=== PATIENT | female | born 1930 | race Caucasian/White ===

== ENCOUNTER 2017-01-02 18:37 | Inpatient (IN) ==
--- NOTE | 2017-01-02 18:52 | Emergency Department Note ---
Disposition Clinical Impression: Generalized weakness, UTI (urinary tract infection) Disposition: Admitted As Inpatient Condition: Good Referrals: Dillon Manning MD [Primary Care Provider] - Forms: ED Satisfaction Letter Time of Disposition: 22:14 Abdominal Pain HPI - General Chief Complaint: ED Weakness Stated Complaint: weakness, loss of appetite Time Seen by Provider: 01/02/17 18:45 Source: patient Mode of arrival: wheelchair Limitations: physical limitation Nursing Notes Reviewed: Yes Vital Signs Reviewed: Yes - History of Present Illness HPI Narrative: 86-year-old white female complaining of right lower abdominal pain that started earlier this morning. It is sharp in nature. Nonradiating. It is worse with movement. The last 2 months she has had problems with weakness, weight loss, poor by mouth intake. She has been evaluated by her primary care physician, has had no extensive outpatient workup including upper GI, EGD, colonoscopy, CT abdomen and pelvis. No nausea or vomiting. She has currently been treated for urinary tract infection for the last 2 weeks. Pt Subjective Complaint: abdominal pain Onset (ago): day(s) Consistency: constant (1) Location: RLQ Pain Severity: moderate Quality: sharp Radiation: none Migration to: no migration Improves with: nothing Worsens with: movement Context: other (Recent weight loss of 30 pounds with poor by mouth intake) Associated symptoms: Reports: other (Weight loss, poor by mouth intake.) - Related Data Home Medications Medication Instructions Recorded Confirmed Aspirin [Ecotrin] 325 mg PO DAILY 12/22/16 01/02/17 Calcium Carbonate [Calcium] 600 mg PO DAILY 12/22/16 01/02/17 Cholecalciferol (D-3) [Vitamin D] 1,000 unit PO DAILY 12/22/16 01/02/17 Doxazosin [Cardura] 4 mg PO DAILY 12/22/16 01/02/17 Famotidine [Pepcid] 40 mg PO DAILY 12/22/16 01/02/17 Ferrous Gluconate 324 mg PO BID 12/22/16 01/02/17 Furosemide [Lasix] 40 mg PO DAILY 12/22/16 01/02/17 Levothyroxine [Synthroid] 88 mcg PO DAILY 12/22/16 01/02/17 Metoprolol Succinate 50 mg PO DAILY 12/22/16 01/02/17 Oxybutynin Chloride [Ditropan Xl] 10 mg PO DAILY 12/22/16 01/02/17 Pantoprazole Sodium [Protonix] 40 mg PO DAILY 12/22/16 01/02/17 Paroxetine HCl [Paxil] 10 mg PO DAILY 12/22/16 01/02/17 Potassium Chloride [Klor-Con 10] 10 meq PO QID 12/22/16 01/02/17 Probenecid [Benemid] 500 mg PO BID 12/22/16 01/02/17 Previous Rx's Medication Instructions Recorded Nitrofurantoin (BID) [Macrobid] 100 mg PO BID #20 capsule 12/22/16 Allergies Allergy/AdvReac Type Severity Reaction Status Date / Time lisinopril Allergy Rash Verified 01/02/17 18:39 Penicillins Allergy Hives Verified 01/02/17 18:39 All systems ED: reviewed and negative except as stated. Constitutional: Denies: fever, chills ENT ED: Denies: ear pain, throat pain Cardiovascular: Denies: chest pain Respiratory: Denies: cough, dyspnea Gastrointestinal: Reports: abdominal pain. Denies: nausea, vomiting, diarrhea Genitourinary: Denies: urgency, dysuria, frequency Musculoskeletal: Denies: back pain Neurological: Reports: weakness. Denies: numbness, paresthesias Abdominal Pain PMH - Past Medical History Medical history: Reports: cancer, GERD, hyperlipidemia, hypertension, thyroid disease, other Female Surgical History: Reports: cholecystectomy Psychiatric history: Reports: no psych history - Social History Smoking status: Never smoker Alcohol use: Reports: none Drug use: Reports: none Physical Exam - General Limitations: no limitations, physical limitation (Hearing deficit) General appearance: alert, in no apparent distress - Head Head exam: atraumatic, normocephalic - Eye Eye exam: Present: PERRL, EOMI. Absent: scleral icterus, conjunctival injection - ENT ENT exam: normal oropharynx, mucous membranes moist, TM's normal bilaterally - Neck Neck exam: Present: normal inspection, full ROM, trachea midline. Absent: lymphadenopathy - Chest Chest inspection: Present: normal inspection, symmetric chest wall rise - Respiratory Respiratory exam: Present: normal lung sounds bilaterally. Absent: respiratory distress, wheezes - Cardiovascular Cardiovascular exam: Present: regular rate, normal rhythm, normal heart sounds - Abdominal Exam Abdominal exam: Present: soft, tenderness, normal bowel sounds. Absent: distention, guarding, rebound, organomegaly, mass Abdominal tenderness: Present: RLQ, moderate - Back Exam Back exam: Absent: CVA tenderness (R), CVA tenderness (L) - Neurological Exam Neurological exam: Present: alert, oriented X3 - Psychiatric Psychiatric exam: Present: normal affect, normal mood - Skin Skin exam: Present: warm, dry. Absent: rash, cyanosis, diaphoresis Course Vital Signs Temperature 99.5 F 01/02/17 19:07 Pulse Rate 107 01/02/17 19:07 Respiratory Rate 18 01/02/17 19:07 Blood Pressure 136/64 01/02/17 19:07 O2 Sat by Pulse Oximetry 94 01/02/17 19:07 Temperature 99.5 F 01/02/17 19:07 Pulse Rate 71 01/02/17 21:42 Respiratory Rate 17 01/02/17 21:42 Blood Pressure 135/67 01/02/17 21:42 O2 Sat by Pulse Oximetry 96 01/02/17 21:42 Oxygen Delivery Oxygen Delivery Room Air Abdominal Pain - MDM Narrative Medical decision making narrative: Differential includes but is not limited to appendicitis, ureterolithiasis, pyelonephritis, cystitis, inguinal hernia, femoral hernia. Her abdominal pain resolved while she was here. On repeat exam she had no abdominal tenderness. The family states she lives alone. She is so weak she cannot even stand on her own. They are asking for admission for placement. She cannot care for herself. I spoke with Dr. Tomlin. He is agreeable with admission for placement. I am going to start Rocephin pending her urine culture results. - Medical Records Medical records reviewed: Yes I reviewed the patient's medical records. - Lab Data Lab results reviewed: Yes I reviewed the patient's lab results. Result diagrams: 01/02/17 19:20 01/02/17 19:20 Lab Results 01/02/17 01/02/17 01/02/17 Range/Units 19:20 19:20 20:40 WBC 14.7 H (4.3-11.1) K/mcL RBC 4.14 (3.82-4.97) M/mcL Hgb 12.3 (11.5-15.4) g/dL Hct 36.7 (35.3-44.9) % MCV 88.6 (83.0-100.0) fL MCH 29.7 (28.0-33.3) pg MCHC 33.5 (31.6-35.5) g/dL RDW 13.8 (11.5-14.5) % Plt Count 242 (140-400) K/mcL MPV 10.7 (9.4-12.4) fL Immature Gran % 0.7 (0-4) % Seg Neutrophils % 83.2 % Lymphocytes % 6.4 % Monocytes % 8.7 % Eosinophils % 0.7 % Basophils % 0.3 % Neutrophils # 12.2 H (1.6-8.9) K/mcL Lymphocytes # 0.9 (0.6-4.6) K/mcL Monocytes # 1.3 (0.0-1.3) K/mcL Eosinophils # 0.1 (0.0-0.6) K/mcL Basophils # 0.0 (0.0-0.2) K/mcL Sodium 139 (136-145) mEq/L Potassium 4.5 (3.5-4.5) mEq/L Chloride 104 (98-109) mEq/L Carbon Dioxide 23 (19-29) mEq/L BUN 17 (7-20) mg/dL Creatinine 1.07 (0.57-1.11) mg/dL Est GFR ( Amer) 59 L (> 60) Est GFR (Non-Af Amer) 49 L (> 60) BUN/Creatinine Ratio 16 (6-26) Glucose 100 H (70-99) mg/dL Calculated Osmolality 290 (280-300) Calcium 9.6 (8.6-10.8) mg/dL Total Bilirubin 0.7 (0.2-1.2) mg/dL AST 21 (5-34) Units/L ALT 11 (0-55) Units/L Alkaline Phosphatase 107 (38-126) Units/L Serum Total Protein 6.1 (6.0-8.3) g/dL Albumin 2.5 L (3.5-5.0) g/dL Globulin 3.6 H (2.4-3.5) g/dL Albumin/Globulin Ratio 0.7 L (1.1-2.2) Lipase 29 (8-78) Units/L Urine Color Yellow (Yellow) Urine Clarity Slightly Cloudy A (Clear) Urine pH 7.5 (5.0-8.0) pH Units Ur Specific [place] 1.015 (1.010-1.025) Urine Protein 100 H (Neg-Trace) mg/dL Urine Glucose (UA) Normal (Normal) mg/dL Urine Ketones Trace H (Negative) mg/dL Urine Blood Negative (Negative) Urine Nitrite Negative (Negative) Urine Bilirubin Small H (Negative) Urine Urobilinogen Normal (Normal) mg/dL Ur Leukocyte Esterase Small H (Negative) Urine Microscopic RBC 0-3 (0-3) per hpf Urine Microscopic WBC 5-15 H (0-3) per hpf Ur Squamous Epith Cells Many H (None-Few) per lpf Amorphous Sediment Many H (Few) Urine Bacteria Many H (None-Few) per hpf Hyaline Casts Few (None-Few) per lpf Urine Mucus Moderate H (Few) Ur Culture Indicated? YES A (NO) - Radiology Data Radiology results reviewed: Yes I reviewed the patient's radiology results. ITS Impressions Abdomen/Pelvis CT 01/02/17 18:48 IMPRESSION: 1. Appendix is borderline dilated measuring up to 0.7 cm in diameter. No significant adjacent inflammatory changes are present. Findings are equivocal for appendicitis which cannot be excluded. 2. Nonspecific small free fluid in the pelvis. 3. Question low-attenuation lesion in the inferior margin of right liver. 4. Ventral hernia containing fat only. 5. Small pericardial effusion. 6. Diffuse low attenuation appears of the left liver may be veterans contact representative of fatty infiltration. D/ / 01/02/2017 20:48:43 Billy Galindo MD / karol Interpreting Provider: Billy Galindo MD
[2017-01-02 19:30] LABS: Basophils % 0.3 %; Eosinophils # 0.1 K/mcL (0.0-0.6); Eosinophils % 0.7 %; Hematocrit 36.7 % (35.3-44.9); Hemoglobin 12.3 g/dL (11.5-15.4); Immature Granulocytes % 0.7 % (0-4); Lymphocytes # 0.9 K/mcL (0.6-4.6); Lymphocytes % 6.4 %; Mean Corpuscular HGB Conc 33.5 g/dL (31.6-35.5); Mean Corpuscular Hemoglobin 29.7 pg (28.0-33.3); Mean Corpuscular Volume 88.6 fL (83.0-100.0); Mean Platelet Volume 10.7 fL (9.4-12.4); Monocytes # 1.3 K/mcL (0.0-1.3); Monocytes % 8.7 %; Platelet Count 242 K/mcL (140-400); Red Blood Count 4.14 M/mcL (3.82-4.97); Red Cell Distribution Width 13.8 % (11.5-14.5); Segmented Neutrophils % 83.2 %
[2017-01-02 19:31] LABS: Neutrophils # 12.2 K/mcL (1.6-8.9)
[2017-01-02 19:49] LABS: Albumin 2.5 g/dL (3.5-5.0); Albumin/Globulin Ratio 0.7 (1.1-2.2); Bilirubin,Total 0.7 mg/dL (0.2-1.2); Calcium 9.6 mg/dL (8.6-10.8); Globulin 3.6 g/dL (2.4-3.5); Potassium 4.5 mEq/L (3.5-4.5); Total Protein 6.1 g/dL (6.0-8.3)
[2017-01-02 20:48] LABS: Bilirubin,Urine Small (Negative); Blood,Urine Negative (Negative); Clarity,Urine Slightly Cloudy (Clear); Color,Urine Yellow (Yellow); Glucose,Urine (UA) Normal (Normal); Ketones,Urine Trace mg/dL (Negative); Leukocyte Esterase,Urine Small (Negative); Nitrite,Urine Negative (Negative); PH,Urine 7.5 pH Units (5.0-8.0); Protein,Urine 100 mg/dL (Neg-Trace); Specific Gravity,Urine 1.015 (1.010-1.025); Urobilinogen,Urine Normal (Normal)
[2017-01-02 21:19] LABS: Hyaline Casts,Urine Few per lpf (None-Few); Squamous Epithelial Cell,Urine Many per lpf (None-Few)
[2017-01-02 21:20] LABS: Amorphous Sediment,Urine Many (Few); Bacteria,Urine Many per hpf (None-Few); Mucus,Urine Moderate (Few)
[2017-01-02 21:21] LABS: RBC,Urine 0-3 per hpf (0-3)
[2017-01-02] MEDS ORDERED: CefTRIAXone 1,000 MG VIAL IM ONE (22:20)
[2017-01-02] MEDS ORDERED: CefTRIAXone 1,000 MG in D5% in Water (Mini-Bag+) 100 ML IVPB STA (22:39)
[2017-01-02] MEDS ORDERED: Naloxone 0.4 MG/ML INJ IVP PRN (23:55)
[2017-01-03] MEDS: *HR* Enoxaparin 40 MG/0.4 ML SYRINGE SQ SCH (06:27)
[2017-01-03] MEDS: Metoprolol XL (24 HR) Succ 50 MG TAB.ER.24H PO SCH (08:05)
[2017-01-03] MEDS: Cholecalciferol (D-3) 1,000 UNIT TABLET PO SCH (08:07)
[2017-01-03] MEDS ORDERED: Nitrofurantoin (BID) 100 MG CAPSULE PO SCH (09:00)
[2017-01-03] MEDS ORDERED: Furosemide 40 MG TABLET PO SCH (09:00)
[2017-01-03] MEDS ORDERED: Famotidine 20 MG TABLET PO SCH (09:00)
[2017-01-03] MEDS ORDERED: Aspirin Enteric Coated 325 MG Tablet PO SCH (09:00)
--- NOTE | 2017-01-03 11:03 | Internal Med History&Physical ---
Date of Encounter: 01/03/17 Time of Encounter: 10:15 Assessment and Plan (1) Abdominal pain Current visit: Yes Status: Acute Etiology is not obvious. She does not appear to have appendicitis clinically since there is no right lower quadrant tenderness on exam. She is started on Rocephin for possible UTI. We will reevaluate tomorrow and recheck labs in a.m. Qualifiers: Abdominal location: right lower quadrant Qualified Code(s): R10.31 - Right lower quadrant pain (2) CKD (chronic kidney disease) stage 3, GFR 30-59 ml/min Current visit: Yes Status: Acute Will monitor renal indices. (3) Hypertension Current visit: Yes Status: Chronic Continue home blood pressure medications and adjust as needed. Qualifiers: Hypertension type: essential hypertension Qualified Code(s): I10 - Essential (primary) hypertension (4) Neutrophilic leukocytosis Current visit: Yes Status: Acute She was started on Rocephin through emergency room for possible UTI. We will recheck labs in a.m. (5) Fall Current visit: Yes Status: Acute She reports she fell into her bathroom last week landing in the shower. She has a contusion on her right elbow but denies other significant pain. Will give IV fluids and check orthostatic vital signs in a.m. Qualifiers: Encounter type: initial encounter Qualified Code(s): W19.XXXA - Unspecified fall, initial encounter (6) Depression Current visit: Yes Status: Chronic We will discontinue Paxil and change her to Remeron for appetite stimulation. Qualifiers: Depression Type: unspecified Qualified Code(s): F32.9 - Major depressive disorder, single episode, unspecified (7) Overactive bladder Current visit: Yes Status: Acute We will hold the Ditropan for now and monitor OAB. (8) UTI (urinary tract infection) Current visit: Yes Status: Acute She has received Macrobid since December 23. This will be discontinued. Rocephin was started in the emergency room. Urine was sent for culture. Further workup will be done as needed. Qualifiers: Urinary tract infection type: site unspecified Hematuria presence: without hematuria Qualified Code(s): N39.0 - Urinary tract infection, site not specified (9) Generalized weakness Current visit: Yes Status: Acute She will have physical therapy and occupational therapy evaluations with ongoing intervention. She states she would like to go to [facility] for rehabilitation therapy Internal Medicine - H&P: HPI Chief complaint: Abdominal pain and weakness Admitted From: Home Plans for Post Hospital Care: Home History of present illness: Ms. Archer is a 86 year old female who came to the emergency room stating she had onset of discomfort in her right lower quadrant area earlier the day. It was gradual in onset and felt like a "ache". It resolved after a few minutes but recurred several times throughout the day in a similar pattern. She denies nausea vomiting or diarrhea. She came to the emergency room was evaluated and felt deserved admission to [facility] for ongoing care needs. She states she has had intermittent abdominal discomfort over the past few weeks of slightly different nature. She had CT of the abdomen and pelvis done in the emergency room last evening which showed no significant pathology. There were equivocal findings for acute appendicitis. She had colonoscopy 12/28 which showed sigmoid and descending colon diverticula and internal hemorrhoids but no other significant pathology. Upper GI series 11/30/2016 showed sliding-type hiatal hernia with GERD but otherwise unremarkable. She denies disorders of her liver gallbladder or exocrine pancreas. She states her bowel movement pattern has not changed the past few months. Her appetite has significantly decreased since July 2016 and she believes she has lost 40 pounds. Past Med Surg Social Fam HX - Past Medical History Medical history: DVT, GERD, hyperlipidemia, hypertension, renal disease, thyroid disease Psychiatric history: no psych history - Past Surgical History Surgical History: cholecystectomy, knee replacement, orthopedic, other - Social History Smoking Status: Never smoker Smokeless Tobacco Status: No Alcohol use: none Drug use: none Internal Medicine - H&P: Meds Aspirin [Ecotrin] 325 mg PO DAILY 12/22/16 [History] Calcium Carbonate [Calcium] 600 mg PO DAILY 12/22/16 [History] Cholecalciferol (D-3) [Vitamin D] 1,000 unit PO DAILY 12/22/16 [History] Doxazosin [Cardura] 4 mg PO DAILY 12/22/16 [History] Famotidine [Pepcid] 40 mg PO DAILY 12/22/16 [History] Ferrous Gluconate 324 mg PO BID 12/22/16 [History] Furosemide [Lasix] 40 mg PO DAILY 12/22/16 [History] Levothyroxine [Synthroid] 88 mcg PO DAILY 12/22/16 [History] Metoprolol Succinate 50 mg PO DAILY 12/22/16 [History] Nitrofurantoin (BID) [Macrobid] 100 mg PO BID #20 capsule 12/22/16 [Rx] Oxybutynin Chloride [Ditropan Xl] 10 mg PO DAILY 12/22/16 [History] Pantoprazole Sodium [Protonix] 40 mg PO DAILY 12/22/16 [History] Paroxetine HCl [Paxil] 10 mg PO DAILY 12/22/16 [History] Potassium Chloride [Klor-Con 10] 10 meq PO QID 12/22/16 [History] Probenecid [Benemid] 500 mg PO BID 12/22/16 [History] Allergies lisinopril Allergy (Verified 01/02/17 18:39) Rash Penicillins Allergy (Verified 01/02/17 18:39) Hives All Systems PM: A 10-system review of systems was performed and is negative for pertinent findings except as documented above in the HPI. Review of systems: Gen.: She claims a 40 pound weight loss in the past 6 months as per above Cardiovascular: She has history of hypertension. 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 She is been maintained on aspirin 325 mg daily since then. She denies chest pain heart failure or pulmonary emboli Respiratory: She is a lifelong nonsmoker and has no known chronic lung disease GI: As per history of present illness : She has overactive bladder and chronic kidney disease stage III. She follows with Dr. Cao's practice in [place]. She denies other kidney or bladder disorders. Neurologic: She denies large distribution strokes or seizures. Endocrine: She has hypothyroidism. She denies diabetes or hyperlipidemia Hematology/oncology: She had anemia in the past. She denies internal malignancies or other blood disorders Psychiatric: She has depression but denies anxiety or other mental health issues Musk skeletal: She has DJD and had a gout attack in the past. She denies other bone joint or muscle disorders. - Constitutional Vitals: Temp Pulse Resp BP Pulse Ox 97.8 F 81 18 146/75 98 01/03/17 04:35 01/03/17 04:35 01/03/17 04:35 01/03/17 04:35 01/03/17 04:35 Exam: Gen.: She is a well-developed well-nourished female who appears in no severe distress HEENT: Head is atraumatic and normocephalic. Eyes: EOMI. There is no scleral icterus. Mouth: Mucosa is moist. Neck: Supple and nontender. There is no thyromegaly or adenopathy noted. Heart: Regular without murmurs gallops or ectopics. Lungs: No wheezes or crackles heard. Abdomen: Soft and nontender. No masses or guarding are noted. Extremities: There is no cyanosis edema or clubbing noted. Dorsalis pedis and posterior tibial pulses are trace to 1+ palpable bilaterally. Her feet are warm to touch. She has mild DJD changes of her hands. Neurologic: Mental status: She is talkative and a good historian. Cranial nerves: Smile is symmetric. Forehead wrinkles bilaterally. Tongue protrudes midline. EOMI. Motor: There is no pronator drift. Cerebellar: Finger to nose is intact bilaterally. Skin: Warm and dry Internal Med - H&P Results - Labs CBC & Chem 7: 01/02/17 19:20 01/02/17 19:20
[2017-01-03] MEDS: Mirtazapine 15 MG TABLET PO SCH (20:26)
[2017-01-03] MEDS: CefTRIAXone 1,000 MG in D5% in Water (Mini-Bag+) 100 ML IVPB SCH (23:00)
[2017-01-04] MEDS: *HR* Enoxaparin 40 MG/0.4 ML SYRINGE SQ SCH (05:40)
[2017-01-04 07:43] LABS: Basophils % 0.3 %; Eosinophils # 0.1 K/mcL (0.0-0.6); Eosinophils % 0.9 %; Hematocrit 37.3 % (35.3-44.9); Hemoglobin 12.5 g/dL (11.5-15.4); Immature Granulocytes % 0.6 % (0-4); Lymphocytes # 0.9 K/mcL (0.6-4.6); Lymphocytes % 6.3 %; Mean Corpuscular HGB Conc 33.5 g/dL (31.6-35.5); Mean Corpuscular Hemoglobin 29.8 pg (28.0-33.3); Mean Platelet Volume 11.4 fL (9.4-12.4); Monocytes # 1.2 K/mcL (0.0-1.3); Monocytes % 8.4 %; Neutrophils # 11.9 K/mcL (1.6-8.9); Platelet Count 243 K/mcL (140-400); Red Blood Count 4.19 M/mcL (3.82-4.97); Segmented Neutrophils % 83.5 %
[2017-01-04 08:50] LABS: BUN/Creatinine Ratio 14 (6-26); Blood Urea Nitrogen 15 mg/dL (7-20); Calcium 9.3 mg/dL (8.6-10.8); Carbon Dioxide 23 mEq/L (19-29); Chloride 100 mEq/L (98-109); Glucose 88 mg/dL (70-99); Osmolality,Calculated 282 (280-300); Potassium 3.8 mEq/L (3.5-4.5); Sodium 136 mEq/L (136-145); eGFR For African Americans > 60 (> 60); eGFR For Non-African Americans 50 (> 60)
[2017-01-04 08:52] LABS: Magnesium 1.5 mg/dL (1.6-2.6); Uric Acid 5.5 mg/dL (2.6-6.0)
[2017-01-04] MEDS: Famotidine 20 MG TABLET PO SCH (09:10)
[2017-01-04] MEDS: Metoprolol XL (24 HR) Succ 50 MG TAB.ER.24H PO SCH (09:10)
[2017-01-04] MEDS: Cholecalciferol (D-3) 1,000 UNIT TABLET PO SCH (09:10)
--- NOTE | 2017-01-04 10:22 | Internal Med Progress Note ---
Date of Encounter: 01/04/17 Time of Encounter: 10:10 - Assessment and plan (1) Abdominal pain Current Visit: Yes Status: Acute Assessment and plan: January 04. Improved. Will not workup further at this time. Qualifiers: Abdominal location: right lower quadrant Qualified Code(s): R10.31 - Right lower quadrant pain (2) CKD (chronic kidney disease) stage 3, GFR 30-59 ml/min Current Visit: Yes Status: Chronic Assessment and plan: January 04. Continue IV fluids and monitor renal indices. (3) Hypertension Current Visit: Yes Status: Chronic Assessment and plan: January 04. Blood pressures are often above desirable range. We will increase Cardura to 6 mg daily. Qualifiers: Hypertension type: essential hypertension Qualified Code(s): I10 - Essential (primary) hypertension (4) Neutrophilic leukocytosis Current Visit: Yes Status: Acute Assessment and plan: January 04. Unchanged. Continue Rocephin for now and recheck labs in a.m. (5) Fall Current Visit: Yes Status: Acute Assessment and plan: January 04. Continue IV fluids and therapy interventions. Qualifiers: Encounter type: initial encounter Qualified Code(s): W19.XXXA - Unspecified fall, initial encounter (6) Depression Current Visit: Yes Status: Chronic Assessment and plan: January 04. Continue Remeron. Qualifiers: Depression Type: unspecified Qualified Code(s): F32.9 - Major depressive disorder, single episode, unspecified (7) Overactive bladder Current Visit: Yes Status: Acute Assessment and plan: January 04. Remain off Ditropan and continue to monitor. (8) UTI (urinary tract infection) Current Visit: Yes Status: Acute Assessment and plan: Urine culture showed mixed organisms with probable contaminated specimen. Continue Rocephin empirically. Qualifiers: Urinary tract infection type: site unspecified Hematuria presence: without hematuria Qualified Code(s): N39.0 - Urinary tract infection, site not specified (9) Generalized weakness Current Visit: Yes Status: Acute Assessment and plan: January 04. Continue therapy interventions. Referral to TABV done. - Subjective Interval history: January 04. She has no new complaints. She states her abdominal discomfort has significantly lessened. - Constitutional Vitals: Temp Pulse Resp BP Pulse Ox 98.2 F 85 16 144/83 96 01/04/17 07:41 01/04/17 09:58 01/04/17 09:08 01/04/17 09:08 01/04/17 09:58 Exam: She is resting comfortably in bed. Her affect appears slightly more bright and cheerful today. Extremities show no edema. I reviewed her medications and lab results. Internal Medicine: Result - Labs CBC & Chem 7: 01/04/17 07:00 01/04/17 07:00 Labs: Short CBC 01/04/17 Range/Units 07:00 WBC 14.3 H (4.3-11.1) K/mcL Hgb 12.5 (11.5-15.4) g/dL Hct 37.3 (35.3-44.9) % Plt Count 243 (140-400) K/mcL Neutrophils # 11.9 H (1.6-8.9) K/mcL BMP 01/04/17 07:00 Sodium 136 Potassium 3.8 Chloride 100 Carbon Dioxide 23 BUN 15 Creatinine 1.04 Glucose 88 Calcium 9.3 Consult Discharge Plan - Plan Referrals: Dillon Manning MD [Primary Care Provider] - 1 week
[2017-01-04] MEDS: Nystatin SUSP 5 ML UD.LIQ PO SCH ×3 (12:41→19:55)
[2017-01-04] MEDS: Mirtazapine 15 MG TABLET PO SCH (19:56)
[2017-01-04] MEDS: CefTRIAXone 1,000 MG in D5% in Water (Mini-Bag+) 100 ML IVPB SCH (23:49)
[2017-01-05] MEDS: *HR* Enoxaparin 30 MG/0.3 ML SYRINGE SQ SCH (06:24)
[2017-01-05] MEDS: Nystatin SUSP 5 ML UD.LIQ PO SCH ×4 (08:35→23:01)
[2017-01-05] MEDS: Metoprolol XL (24 HR) Succ 50 MG TAB.ER.24H PO SCH (08:36)
[2017-01-05] MEDS: Famotidine 20 MG TABLET PO SCH (08:36)
[2017-01-05] MEDS: Cholecalciferol (D-3) 1,000 UNIT TABLET PO SCH (08:36)
--- NOTE | 2017-01-05 11:14 | Internal Med Progress Note ---
Date of Encounter: 01/05/17 Time of Encounter: 11:05 - Assessment and plan (1) Abdominal pain Current Visit: Yes Status: Acute Assessment and plan: January 04. Improved. Will not workup further at this time. Qualifiers: Abdominal location: right lower quadrant Qualified Code(s): R10.31 - Right lower quadrant pain (2) CKD (chronic kidney disease) stage 3, GFR 30-59 ml/min Current Visit: Yes Status: Chronic Assessment and plan: January 04. Continue IV fluids and monitor renal indices. January 05. Continue IV fluids. Recheck labs in a.m. (3) Hypertension Current Visit: Yes Status: Chronic Assessment and plan: January 04. Blood pressures are often above desirable range. We will increase Cardura to 6 mg daily. January 05. Continue present medications. Qualifiers: Hypertension type: essential hypertension Qualified Code(s): I10 - Essential (primary) hypertension (4) Neutrophilic leukocytosis Current Visit: Yes Status: Acute Assessment and plan: January 04. Unchanged. Continue Rocephin for now and recheck labs in a.m. January 05. Recheck labs in a.m. (5) Fall Current Visit: Yes Status: Acute Assessment and plan: January 04. Continue IV fluids and therapy interventions. Qualifiers: Encounter type: initial encounter Qualified Code(s): W19.XXXA - Unspecified fall, initial encounter (6) Depression Current Visit: Yes Status: Chronic Assessment and plan: January 04. Continue Remeron. Qualifiers: Depression Type: unspecified Qualified Code(s): F32.9 - Major depressive disorder, single episode, unspecified (7) Overactive bladder Current Visit: Yes Status: Acute Assessment and plan: January 04. Remain off Ditropan and continue to monitor. (8) UTI (urinary tract infection) Current Visit: Yes Status: Acute Assessment and plan: January 04. Urine culture showed mixed organisms with probable contaminated specimen. Continue Rocephin empirically. January 05. We will discontinue Rocephin. Qualifiers: Urinary tract infection type: site unspecified Hematuria presence: without hematuria Qualified Code(s): N39.0 - Urinary tract infection, site not specified (9) Generalized weakness Current Visit: Yes Status: Acute Assessment and plan: January 04. Continue therapy interventions. Referral to TABV done. January 05. Anticipate discharge to TABV tomorrow. Continue therapy (10) Hypomagnesemia Current Visit: Yes Status: Acute Assessment and plan: January 05. Magnesium level returned minimally low at 1.5 yesterday. We will recheck in a.m. - Subjective Interval history: January 04. She has no new complaints. She states her abdominal discomfort has significantly lessened. January 05. She has no new complaints. She states she had mild abdominal pain earlier today but it resolved and she is pain-free now. She denies dyspnea. She states her appetite is very poor - Constitutional Vitals: Temp Pulse Resp BP Pulse Ox 98.3 F 75 14 162/73 98 01/05/17 09:15 01/05/17 09:15 01/05/17 09:15 01/05/17 09:15 01/05/17 09:15 Exam: Her abdomen is soft and nontender. No masses or guarding noted. Extremities show no pitting edema. Her affect is slightly flat but overall cheerful. I reviewed her medications and lab results. Internal Medicine: Result - Labs CBC & Chem 7: 01/04/17 07:00 01/04/17 07:00 Consult Discharge Plan - Plan Referrals: Dillon Manning MD [Primary Care Provider] - 1 week
[2017-01-05] MEDS: Mirtazapine 15 MG TABLET PO SCH (23:01)
[2017-01-06] MEDS: *HR* Enoxaparin 30 MG/0.3 ML SYRINGE SQ SCH (06:20)
[2017-01-06 07:42] LABS: Basophils % 0.2 %; Eosinophils # 0.1 K/mcL (0.0-0.6); Hematocrit 34.1 % (35.3-44.9); Hemoglobin 11.3 g/dL (11.5-15.4); Immature Granulocytes % 0.6 % (0-4); Lymphocytes # 0.8 K/mcL (0.6-4.6); Lymphocytes % 6.1 %; Mean Corpuscular HGB Conc 33.1 g/dL (31.6-35.5); Mean Corpuscular Hemoglobin 29.4 pg (28.0-33.3); Mean Corpuscular Volume 88.8 fL (83.0-100.0); Mean Platelet Volume 11.2 fL (9.4-12.4); Monocytes # 1.1 K/mcL (0.0-1.3); Monocytes % 8.7 %; Platelet Count 217 K/mcL (140-400); Red Blood Count 3.84 M/mcL (3.82-4.97); Segmented Neutrophils % 83.4 %
[2017-01-06 08:07] LABS: Neutrophils # 10.3 K/mcL (1.6-8.9)
[2017-01-06] MEDS: Famotidine 20 MG TABLET PO SCH (08:18)
[2017-01-06] MEDS: Metoprolol XL (24 HR) Succ 50 MG TAB.ER.24H PO SCH (08:18)
[2017-01-06] MEDS: Cholecalciferol (D-3) 1,000 UNIT TABLET PO SCH (08:18)
[2017-01-06] MEDS: Nystatin SUSP 5 ML UD.LIQ PO SCH (08:18)
[2017-01-06 08:29] VITALS: BP 155/75
[2017-01-06 08:40] LABS: BUN/Creatinine Ratio 10 (6-26); Blood Urea Nitrogen 8 mg/dL (7-20); Calcium 8.9 mg/dL (8.6-10.8); Carbon Dioxide 22 mEq/L (19-29); Chloride 103 mEq/L (98-109); Glucose 95 mg/dL (70-99); Magnesium 1.5 mg/dL (1.6-2.6); Osmolality,Calculated 280 (280-300); Potassium 3.4 mEq/L (3.5-4.5); Sodium 136 mEq/L (136-145); eGFR For African Americans > 60 (> 60); eGFR For Non-African Americans > 60 (> 60)
--- NOTE | 2017-01-06 09:59 | Discharge Summary ---
Date of Encounter: 01/06/17 Time of Encounter: 09:45 - Discharge Diagnosis (1) Abdominal pain Priority: Primary Status: Acute Qualifiers: Abdominal location: right lower quadrant Qualified Code(s): R10.31 - Right lower quadrant pain (2) Generalized weakness Priority: Secondary Status: Acute (3) CKD (chronic kidney disease) stage 3, GFR 30-59 ml/min Priority: Secondary Status: Chronic (4) Hypertension Priority: Secondary Status: Chronic Qualifiers: Hypertension type: essential hypertension Qualified Code(s): I10 - Essential (primary) hypertension (5) Neutrophilic leukocytosis Priority: Secondary Status: Acute (6) Fall Priority: Secondary Status: Acute Qualifiers: Encounter type: initial encounter Qualified Code(s): W19.XXXA - Unspecified fall, initial encounter (7) Depression Priority: Secondary Status: Chronic Qualifiers: Depression Type: unspecified Qualified Code(s): F32.9 - Major depressive disorder, single episode, unspecified (8) Overactive bladder Priority: Secondary Status: Acute (9) UTI (urinary tract infection) Priority: Secondary Status: Resolved Qualifiers: Urinary tract infection type: site unspecified Hematuria presence: without hematuria Qualified Code(s): N39.0 - Urinary tract infection, site not specified (10) Hypomagnesemia Priority: Secondary Status: Acute - Discharge Medications Prescriptions: Magnesium Oxide [Magnesium] 400 mg PO DAILY #7 capsule Home Medications: Aspirin [Ecotrin] 325 mg PO DAILY 12/22/16 [History] Calcium Carbonate [Calcium] 600 mg PO DAILY 12/22/16 [History] Doxazosin [Cardura] 4 mg PO DAILY 12/22/16 [History] Levothyroxine [Synthroid] 88 mcg PO DAILY 12/22/16 [History] Metoprolol Succinate 50 mg PO DAILY 12/22/16 [History] Pantoprazole Sodium [Protonix] 40 mg PO DAILY 12/22/16 [History] Magnesium Oxide [Magnesium] 400 mg PO DAILY #7 capsule 01/06/17 [Rx] Mirtazapine [Remeron] 15 mg PO HS tablet 01/06/17 [Rx] Allergies/Adverse Reactions: Allergies lisinopril Allergy (Verified 01/02/17 18:39) Rash Penicillins Allergy (Verified 01/02/17 18:39) Hives Date of admission: 01/02/17 23:06 Primary care physician: Dillon Manning MD Consults: 01/03/17 01:12 Consult to Nutrition [CONS] Routine Comment: pt consuming only (1) V8 can per day -no appetite Consulting Provider: NUTRITION Reason for Dietary Consult: MST Score 01/03/17 10:45 Consult to Occupational Therapy [CONS] Routine Comment: Evaluate, develop and implement POC Consult to Physical Therapy [CONS] Routine Comment: Evaluate, develop and implement POC - Patient Status Disposition: Transfer SNF Condition: Good Overall status at discharge: patient is progressing back to baseline - Discharge Instructions - Diet and Activity Activity: as per physical therapy Diet: advance to your usual diet Hospital course: Ms. Archer is a 86 year old female who came to the emergency room stating she had onset of discomfort in her right lower quadrant area earlier the day. It was gradual in onset and felt like a "ache". It resolved after a few minutes but recurred several times throughout the day in a similar pattern. She denies nausea vomiting or diarrhea. She came to the emergency room and was evaluated and felt deserved admission to [facility] for ongoing care needs. Initial orders were written by the emergency room physician. I saw her on January 03 and performed the history and physical. Her abdominal pain occurred sporadically during hospitalization and seemed to be localized in the midepigastric area. There was no tenderness on palpation. She was started on Rocephin through emergency room for possible UTI. Urine culture returned showing mixed organisms. She will not continue on antibiotics at discharge. WBC improved to 12.3 K by the day of discharge with 83.4% segs. She was given IV fluids and BUN and creatinine improved to 8 and 0.77 respectively by the day of discharge with estimated GFR greater than 60. Her magnesium level was low at 1.5 so she will be given supplemental magnesium oxide 400 mg daily for one week. Paxil was discontinued and she was started on Remeron for appetite stimulation and depression. This will be continued at the care home. She had physical therapy and occupational therapy evaluations with ongoing intervention. She requested to go to [facility] for ongoing rehabilitation therapy. On January 06 arrangements were completed for her to be discharged there. - Time Spent with Patient Total time spent providing and/or coordinating discharge services: - Constitutional Vitals: Temp Pulse Resp BP Pulse Ox 99.1 F 87 17 155/75 94 01/06/17 08:21 01/06/17 08:21 01/06/17 08:21 01/06/17 08:21 01/06/17 08:21
--- NOTE | 2017-01-06 10:07 | Physician Discharge Referral ---
[facility] Referral Info Transfer To: [facility] Provider in Charge: Nabor Provider in Charge after Transfer: PCP (Nabor) - Diagnosis (1) Abdominal pain Priority: Primary Status: Acute (2) Generalized weakness Priority: Secondary Status: Acute (3) CKD (chronic kidney disease) stage 3, GFR 30-59 ml/min Priority: Secondary Status: Chronic (4) Hypertension Priority: Secondary Status: Chronic (5) Neutrophilic leukocytosis Priority: Secondary Status: Acute (6) Fall Priority: Secondary Status: Acute (7) Depression Priority: Secondary Status: Chronic (8) Overactive bladder Priority: Secondary Status: Acute (9) UTI (urinary tract infection) Priority: Secondary Status: Resolved (10) Hypomagnesemia Priority: Secondary Status: Acute Prognosis: Fair Aware of Diagnosis: Patient Aware of Prognosis: Patient - Transfer Medications Prescriptions: Magnesium Oxide [Magnesium] 400 mg PO DAILY #7 capsule Home Medications: Aspirin [Ecotrin] 325 mg PO DAILY 12/22/16 [History] Calcium Carbonate [Calcium] 600 mg PO DAILY 12/22/16 [History] Doxazosin [Cardura] 4 mg PO DAILY 12/22/16 [History] Levothyroxine [Synthroid] 88 mcg PO DAILY 12/22/16 [History] Metoprolol Succinate 50 mg PO DAILY 12/22/16 [History] Pantoprazole Sodium [Protonix] 40 mg PO DAILY 12/22/16 [History] Magnesium Oxide [Magnesium] 400 mg PO DAILY #7 capsule 01/06/17 [Rx] Mirtazapine [Remeron] 15 mg PO HS tablet 01/06/17 [Rx] Allergies/Adverse Reactions: Allergies lisinopril Allergy (Verified 01/02/17 18:39) Rash Penicillins Allergy (Verified 01/02/17 18:39) Hives - Respiratory Orders Smoking Cessation: Smoking cessation has been advised. For more information, call the [place] Tobacco Quit Line at 6-985-TVCK-NOW. - Rehabiliation Orders Rehab Potential: Fair Rehab Orders: Evaluation for Physical Therapy, Evaluation for Occupational Therapy - Diet Orders Regular CERTIFICATION: I certify that the transfer of the above named patient to an Extended Care Facility is necessary for the continuing treatment of the diagnosis listed. The above information is true and accurate reflection of patient's current condition. Confidential - Redisclosure prohibited without a patient's written consent.
== END 2017-01-06 12:03 | DRG 690 ==
LOC: INPPIK 18:37 → EMEROOPIK 18:37 → INPPIK 23:43
PROVIDERS: ADMIT Internal Medicine; ATTEND Internal Medicine